=== PATIENT | female | born 1975 | race Caucasian/White ===

== ENCOUNTER 2016-06-26 14:56 | Emergency (ER) | payer MEDICAID ==
[~2016-06-26] VITALS: Ht 162.6 cm; Wt 56.0 kg
[2016-06-26 15:03] VITALS: Ht 162.6 cm; Wt 56.0 kg
--- NOTE | 2016-06-26 16:54 | RADRPT ---
PROCEDURE: XR cervical spine CLINICAL INDICATION: Neck pain TECHNIQUE: 3 views of the cervical spine were obtained COMPARISON: None available FINDINGS: No fracture is identified. There is preservation of the lordosis of the cervical spine without good lignment identified. Vertebral bodies are maintained in height. There is mild disk space narrowing at C4-5 and C5-6 with mild anterior spondylosis at these levels. Prominent C7 transverse processes are noted. Prevertebral soft tissues are unremarkable. IMPRESSION: No acute osseous abnormality identified. Mild cervical spondylosis described above. RPTAT: VV .Dov Diallo MD, Date Time Electronically viewed and signed by .Dov Diallo MD, on 06/26/2016 16:53 .O/
--- NOTE | 2016-06-26 16:57 | RADRPT ---
PROCEDURE: XR Chest. CLINICAL INDICATION: Cough TECHNIQUE: PA view of the chest was obtained. COMPARISON: None available FINDINGS: The cardiomediastinal silhouette is within normal limits. The lungs are clear. No pleural effusion or pneumothorax is evident. The visualized osseous structures are unremarkable. IMPRESSION: No evidence of active cardiopulmonary disease. RPTAT: VV .Dov Diallo MD, MD Date Time Electronically viewed and signed by .Dov Diallo MD, on 06/26/2016 16:57 .O/
[2016-06-26] MEDS ORDERED: AZIT250T94 PO (17:23)
[2016-06-26 17:43] VITALS: BP 140/81; PULSE 80; RESP 17; TEMP 98.5
--- NOTE | 2016-06-26 18:18 | ERD ---
ER Documentation Chief Complaint Date/Time DATE: 06/26/16 TIME: 18:13 Chief Complaint SORE THROAT,COUGH X 1 WEEK, THROAT CLICKING SOUND. HPI 41-year-old female patient with no significant past medical history presents to the ED complaining of a dry cough, sore throat that started 5 days ago. Patient self diagnosed herself with bronchopneumonia and has been taking spongy ectopia, a herbal supplement from [employer]. States that she started to feel like she had swollen tonsils. Reports that she has had a tonsil and adenoidectomy in the past. Patient reports that she feels like there is a clicking sensation in her throat and describes it as an electric sensation going to the top of her head. Patient reports that she feels like the bones are clicking in her throat. Reports that she has some slight odynophagia but denies any dysphagia. Denies any weakness, fever, chills, numbness or tingling , nausea, vomiting, chest pain, shortness of breath, wheezing. ROS All systems reviewed and are negative except as per history of present illness. Medications Home Meds Active Scripts Azithromycin* (Zithromax*) 250 Mg Tablet, 250 MG PO .ZPACK DIRECTED, #6 TAB TAKE 500 MG (2 TABS) THE FIRST DAY THEN 250 MG (1 TAB) DAYS 2-5 Prov:PAMELLA ZAZUETA PA-C 06/26/16 Reported Medications [none] No Conflict Check 06/25/11 Allergies Allergies: Coded Allergies: codeine (Verified Adverse Reaction, Mild, upset stomach, 06/27/16) PMhx/Soc History of Surgery: Yes (tonsilectomy) Hx Miscellaneous Medical Probl: Yes (ADHD) Hx Alcohol Use: No Hx Substance Use: No Hx Tobacco Use: Yes Smoking Status: Current every day smoker Physical Exam Vitals Vital Signs Date Time Temp Pulse Resp B/P Pulse Ox O2 Delivery O2 Flow Rate FiO2 06/26/16 17:43 98.5 80 17 140/81 100 Room Air 06/26/16 15:03 98.5 104 18 136/81 98 Physical Exam Const: [id number], well-nourished. In no acute distress. Head: Atraumatic, normocephalic Eyes: Normal Conjunctiva without injection. No purulent discharge. PERRL. EOMI ENT: Normal external ear. Ear canal without erythema. Tympanic membrane pearly jaffe without effusion or bulging. Nasal canal clear with normal turbinates. Moist oropharynx without tonsillar exudates. Non-erythematous pharynx. Uvula midline. No drooling. No trismus. Neck: Full range of motion. No meningismus. No cervical lymphadenopathy. Resp: Clear to auscultation bilaterally. No wheezing, rhonchi, rales, or crackles. No accessory muscle use. No retractions. Cardio: Regular rate and rhythm. No murmurs, rubs or gallops. Abd: Soft, non tender, non distended. Normal bowel sounds. No palpable masses. No rebound tenderness. No guarding. Skin: No petechiae or rashes Back: No midline tenderness. No CVA tenderness. Ext: No cyanosis, or edema. Neur: Awake and alert. Psych: Normal Mood and Affect Procedures/MDM This is a 41-year-old female patient with no significant past medical history presents to the ED complaining of a sore throat, cough, throat swelling, and a clicking sensation in her throat. Patient is afebrile and nontoxic-appearing. Patient has normal vital signs. A chest x-ray and cervical neck x-ray was ordered to further evaluate patient to rule out subcutaneous emphysema. This case was discussed with my supervising physician, Dr. Damon who recommended the following radiologic studies. PROCEDURE: XR cervical spine CLINICAL INDICATION: Neck pain TECHNIQUE: 3 views of the cervical spine were obtained COMPARISON: None available FINDINGS: No fracture is identified. There is preservation of the lordosis of the cervical spine without malalignment identified. Vertebral bodies are maintained in height. There is mild disk space narrowing at C4-5 and C5-6 with mild anterior spondylosis at these levels. Prominent C7 transverse processes are noted. Prevertebral soft tissues are unremarkable. IMPRESSION: No acute osseous abnormality identified. Mild cervical spondylosis described above. PROCEDURE: XR Chest. CLINICAL INDICATION: Cough TECHNIQUE: PA view of the chest was obtained. COMPARISON: None available FINDINGS: The cardiomediastinal silhouette is within normal limits. The lungs are clear. No pleural effusion or pneumothorax is evident. The visualized osseous structures are unremarkable. IMPRESSION: No evidence of active cardiopulmonary disease. This patient presents to the ED with symptoms consistent with bronchitis. Patient is afebrile and has normal vital signs. Patient's physical exam include lungs which were clear to auscultation and a normal pulse oximetry. There is a low suspicion for pneumonia, pneumothorax, mononucleosis, pulmonary embolism, epiglottitis, otitis media, otitis externa, viral/strep pharyngitis, sinusitis, peritonsillar abscess, mastoiditis, retropharyngeal abscess, meningitis, sepsis, acute abdomen or other emergent conditions. Fluids, rest, and symptomatic treatment are recommended for the management of patient's symptoms. This case discussed with my supervising physician, Dr. Damon who agreed with the management and discharge plan. Discharge medications: Zithromax. Patient denied wanting cough medication. Patient was instructed to return to the ED for any new or worsening symptoms. They should otherwise follow up with the primary care provider within 1-2 days. The patient's questions were answered at the time of discharge. Patient understood and agreed with discharge management. Departure Diagnosis: Primary Impression: Throat pain Additional Impression: Cough Condition: Stable Patient Instructions: Bronchitis, Antiobiotic Treatment (Adult), Symptoms With Uncertain Cause Referrals: ELBERT LOPEZ MD, VISHAL MD COHEN,RADHA YEH [facility] YOU HAVE RECEIVED A MEDICAL SCREENING EXAM AND THE RESULTS INDICATE THAT YOU DO NOT HAVE A CONDITION THAT REQUIRES URGENT TREATMENT IN THE EMERGENCY DEPARTMENT. FURTHER EVALUATION AND TREATMENT OF YOUR CONDITION CAN WAIT UNTIL YOU ARE SEEN IN YOUR DOCTORS OFFICE WITHIN THE NEXT 1-2 DAYS. IT IS YOUR RESPONSIBILITY TO MAKE AN APPOINTMENT FOR FOLOW-UP CARE. IF YOU HAVE A PRIMARY DOCTOR --you should call your primary doctor and schedule an appointment IF YOU DO NOT HAVE A PRIMARY DOCTOR YOU CAN CALL OUR PHYSICIAN REFERRAL HOTLINE AT IF YOU CAN NOT AFFORD TO SEE A PHYSICIAN YOU CAN CHOSE FROM THE FOLLOWING [facility] CLINICS [facility] [address] [facility] [address] [facility] [facility] [address] [facility] [address] [facility]. [facility] [address] [facility]. [facility]. [address] [facility]. [facility] YOU HAVE RECEIVED A MEDICAL SCREENING EXAM AND THE RESULTS INDICATE THAT YOU DO NOT HAVE A CONDITION THAT REQUIRES URGENT TREATMENT IN THE EMERGENCY DEPARTMENT. FURTHER EVALUATION AND TREATMENT OF YOUR CONDITION CAN WAIT UNTIL YOU ARE SEEN IN YOUR DOCTORS OFFICE WITHIN THE NEXT 1-2 DAYS. IT IS YOUR RESPONSIBILITY TO MAKE AN APPOINTMENT FOR FOLOW-UP CARE. IF YOU HAVE A PRIMARY DOCTOR --you should call your primary doctor and schedule and appointment IF YOU DO NOT HAVE A PRIMARY DOCTOR YOU CAN CALL OUR PHYSICIAN REFERRAL HOTLINE AT . IF YOU CAN NOT AFFORD TO SEE A PHYSICIAN YOU CAN CHOSE FROM THE FOLLOWING [facility] INSTITUTIONS: [facility] [address] [place] [address] [facility] [address] [place] [place] [id number] [place] [address] [address] [place] [address] [facility] URGENT CARE/SPECIALTIES Additional Instructions: Call your primary care doctor TOMORROW for an appointment during the next 1-2 days for a referral to ears nose throat specialist.See the doctor sooner or return here if your condition worsens before your appointment time. PAMELLA ZAZUETA PA-C Jun 26, 2016 18:17
== END 2016-06-26 17:44 | disposition home or self-care (01) ==
LOC: MERGE 14:56 → E/R 14:56 → FTE 17:44
DX: R07.0 Pain in throat (principal); R05 Cough; F17.210 Nicotine dependence, cigarettes, uncomplicated
CPT/HCPCS: 71010; 72040; Z7502